=== PATIENT | female | born 1960 | race Caucasian/White ===

== ENCOUNTER 2017-10-31 17:40 | Emergency (ER) | payer OTHER ==
[2017-10-31] MEDS ORDERED: ACETAMINOPHEN-CODEINE 300/30MG TAB ONE (18:11)
== END 2017-10-31 17:50 | disposition home or self-care (01) ==
LOC: EDH 17:40
DX: S80.01XA Contusion of right knee, initial encounter (principal); Z88.1 Allergy status to other antibiotic agents; E11.9 Type 2 diabetes mellitus without complications; I10 Essential (primary) hypertension; J45.909 Unspecified asthma, uncomplicated; W18.39XA Other fall on same level, initial encounter; Y93.01 Activity, walking, marching and hiking; Y92.89 Other specified places as the place of occurrence of the external cause; Y99.8 Other external cause status
CPT/HCPCS: 73562; 73590

== ENCOUNTER → 2018-04-21 | Outpatient (CLI) | payer OTHER | END | disposition home or self-care (01) | LOC: SHCH 15:07 | PROVIDERS: ATTEND Internal Medicine Cardiovascular Disease | DX: I34.0 Nonrheumatic mitral (valve) insufficiency (principal); I10 Essential (primary) hypertension | CPT/HCPCS: 93306 ==

== ENCOUNTER 2019-04-18 08:27 | Day surgery (SDC) | payer OTHER ==
[2019-04-17 16:11] VITALS: BP 144/72
--- NOTE | 2019-04-17 18:00 | NUR ---
ASPIRIN INFORMED DR. ZAPATA THAT PER PT, SHE TOOK HER ASA 81 MG THIS AM AT 1000. NO FURTHER ORDERS FROM DR. ZAPATA, MAY PROCEED.
[~2019-04-18] VITALS: Ht 152.4 cm; Wt 133.4 kg
[2019-04-18] VITALS (15 sets, daily range): BP systolic 110–148; BP diastolic 54–75
[~2019-04-18 08:27] MED LIST: ASPI-1181 PO; ATOR-2 PO; BUPR300T54 PO; CALCIUM CITRATE PO; CEFAZOLIN 3GM /D5W 100ML 100 ML IV PRN; CHOL100034 PO; CLON0.5T4 PO; ESCI20TA36 PO; ESOM20CA31 PO; FLONASE NASAL; FOLIC ACID PO; LATA7.5D OP; LEVO75TA4 PO; LITH300T3 PO; LOSA100T58 PO; MULTIVITAMIN PO; MV-M1TAB57 PO; OMEGA 3 PO; QUET400T12 PO; QUINOL PO; SALBUTAMOL IH; SILDENAFIL PO; TOPI50TA PO; VITA-328 PO; VITAMIN B12 SL; [UNRECOGNIZED DRUG - OTHER] PO; [UNRECOGNIZED DRUG - OTHER] SQ
[2019-04-18] MEDS ORDERED: SODIUM CHLORIDE 0.9% 1000ML 1,000 ML IV ONE (08:39)
[2019-04-18] MEDS: CEFAZOLIN SODIUM 1 GM VIAL ONE ×2 (10:04→12:00)
[2019-04-18] MEDS ORDERED: MIDAZOLAM HCL 1 MG/ML 2ML VIAL ONE (11:06)
[2019-04-18] MEDS ORDERED: DEXAMETHASONE SOD PHOSPHATE 10MG/ML 1ML VIAL ONE (11:06)
[2019-04-18] MEDS ORDERED: ONDANSETRON HCL 4 MG/2 ML VIAL ONE ×2 (11:06→14:55)
[2019-04-18] MEDS ORDERED: PROPOFOL 10 MG/ML 20ML VIAL IV ONE (11:06)
[2019-04-18] MEDS ORDERED: FENTANYL CITRATE PF 50 MCG/1 ML 2ML VIAL ONE ×2 (11:07→12:06)
[2019-04-18] MEDS ORDERED: ROCURONIUM 10MG/1ML SYR 10 MG/ML ML ONE ×2 (11:10→12:22)
[2019-04-18] MEDS ORDERED: GLYCOPYRROLATE 1 MG/5 ML SYRINGE ONE (12:09)
[2019-04-18] MEDS ORDERED: EPHEDRINE SULFATE 50 MG/ML AMPULE ONE (12:12)
[2019-04-18] MEDS ORDERED: NEOSTIGMINE 5MG/5ML SYR IV ONE (13:26)
[2019-04-18] MEDS ORDERED: CEPH500B PO (13:35)
[2019-04-18] MEDS ORDERED: HYDR-4457 PO (13:35)
--- NOTE | 2019-04-18 15:00 | NUR ---
post received pt from [facility], s/p left shoulder arthroscopy. dressing to site dry and intact, arm sling in place. vs stable on arrival . call light within reach
--- NOTE | 2019-04-18 16:04 | NUR ---
dc pt dc home via [place], no distress noted. denied any pain or discomforts. arm sling in place to left shoulder. pt accompanied by spouse
== END 2019-04-18 16:04 | disposition home or self-care (01) ==
LOC: DAH 08:27
PROVIDERS: ATTEND Orthopaedic Surgery
DX: M75.42 Impingement syndrome of left shoulder (principal); M19.012 Primary osteoarthritis, left shoulder; M94.212 Chondromalacia, left shoulder; M75.22 Bicipital tendinitis, left shoulder; M75.52 Bursitis of left shoulder; M75.82 Other shoulder lesions, left shoulder; E11.22 Type 2 diabetes mellitus with diabetic chronic kidney disease; I12.9 Hypertensive chronic kidney disease with stage 1 through stage 4 chronic kidney disease, or unspecified chronic kidney disease; N18.9 Chronic kidney disease, unspecified; E66.01 Morbid (severe) obesity due to excess calories; J44.9 Chronic obstructive pulmonary disease, unspecified; E78.5 Hyperlipidemia, unspecified; F31.9 Bipolar disorder, unspecified; Z68.43 Body mass index [BMI] 50.0-59.9, adult; Z88.1 Allergy status to other antibiotic agents; Z86.73 Personal history of transient ischemic attack (TIA), and cerebral infarction without residual deficits; Z90.710 Acquired absence of both cervix and uterus; Z79.899 Other long term (current) drug therapy; Z79.4 Long term (current) use of insulin; Z79.82 Long term (current) use of aspirin; Z82.49 Family history of ischemic heart disease and other diseases of the circulatory system; Z82.5 Family history of asthma and other chronic lower respiratory diseases
CPT/HCPCS: 29822; 29824; 29826; 64415; 76942; 82948 ×2; A4215; A4221; A4222; A4223; A4565; A4615; A4649 ×3; A4663; A4930; A6204; J0690; J1100; J2250; J2405 ×2; J2704; J2710; J3010 ×2; J3490 ×2; J7030 ×2

== ENCOUNTER 2019-04-18 20:42 | Observation (INO) | payer OTHER ==
[~2019-04-18 20:42] MED LIST changes: -CEFAZOLIN 3GM /D5W 100ML 100 ML IV PRN; +CEPH500B PO; +HYDR-4457 PO
[2019-04-18 21:23] LABS: APPEARANCE,URINE Clear (CLEAR); BILIRUBIN,URINE Negative (NEGATIVE); COLOR,URINE Yellow (YELLOW); GLUCOSE, URINE (UA) Negative (NEGATIVE); KETONES,URINE Negative (NEGATIVE); LEUKOCYTE ESTERASE ,URINE Trace (NEGATIVE); NITRATE,URINE Negative (NEGATIVE); OCCULT BLOOD,URINE Negative (NEGATIVE); PROTEIN,URINE Negative (NEGATIVE); UROBILINOGEN,URINE 0.2 mg/dL (0.2-1.0)
[2019-04-18 21:29] LABS: ABG OXYGEN SATURATION 67.7 % (95.0-99.0); BASE EXCESS,VENOUS BLOOD GAS -6.4 (-2.0-3.0); HCO3,VENOUS BLOOD GAS 18.7 (21.0-28.0); PCO2,VENOUS BLOOD GAS 36 (32-45)
[2019-04-18 21:33] LABS: BACTERIA,URINE Rare /HPF (None Seen); RBC,URINE 0-1 /HPF (0-1); SQUAMOUS EPITHELIAL CELL,UR Rare /HPF (0-2); TRANSITIONAL EPI CELLS,URINE Rare /HPF (None Seen); WBC,URINE 0-1 /HPF (0-1)
[2019-04-18 21:35] LABS: BASOPHILS % (AUTO) 0.2 % (0.0-5.0); EOSINOPHILS % (AUTO) 0.1 % (0.0-8.0); HEMATOCRIT 35.2 % (36-48); LYMPHOCYTES % (AUTO) 9.8 % (21.0-51.0); MEAN CORPUSCULAR HEMOGLOBIN 28.4 pg (27.0-33.0); MEAN CORPUSCULAR HGB CONC 32.9 g/dL (32.0-36.0); MEAN CORPUSCULAR VOLUME 86.4 fL (79-99); MONOCYTES % (AUTO) 6.7 % (3.0-13.0); NEUTROPHILS % (AUTO) 83.2 % (40.0-77.0); PLATELET COUNT (AUTO) 300 K/uL (130-400); RED BLOOD CELL COUNT(AUTO) 4.07 MIL/uL (4.00-5.50); RED CELL DISTRIBUTION WIDTH 14.4 % (11.0-15.5); WHITE BLOOD COUNT (AUTO) 13.5 K/uL (4.8-10.8)
[2019-04-18 21:44] LABS: PARTIAL THROMBOPLASTIN TIME 24.3 SEC (26.3-35.5); PROTHROMBIN TIME 10.5 SEC (9.6-11.6)
[2019-04-18 21:51] LABS: CREATININE 1.7 mg/dL (0.5-1.5); POTASSIUM 4.7 mmol/L (3.5-5.1)
[2019-04-18 21:55] LABS: BILIRUBIN,TOTAL 0.3 mg/dL (0.2-1.0); TOTAL PROTEIN, SERUM 7.6 g/dL (6.0-8.3)
[2019-04-19] MEDS ORDERED: ONDANSETRON ODT 4 MG TAB ONE (07:22)
[2019-04-19] MEDS ORDERED: HYDROCODONE/ACETAMINOPHEN 5/325 MG TAB ONE (07:22)
[2019-04-19] MEDS ORDERED: ACETAMINOPHEN 325 MG TAB PO PRN (12:45)
[2019-04-19] MEDS ORDERED: MORPHINE SULFATE 2 MG/ML 1ML SYG IVP PRN (12:45)
[2019-04-19] MEDS ORDERED: GABAPENTIN 100 MG CAPSULE PO SCH (14:00)
[2019-04-19] MEDS ORDERED: INSULIN R PO SS1 SQ SCH (16:30)
[2019-04-20] MEDS ORDERED: ENOXAPARIN SODIUM 30 MG/0.3 ML SQ SCH (09:00)
[2019-04-20] MEDS ORDERED: ASPIRIN 81MG TAB.CHEW PO SCH (09:00)
== END 2019-04-19 13:04 | disposition left against medical advice (07) ==
LOC: EDH 20:42 → EDHIP 04-19 12:20
PROVIDERS: ADMIT Internal Medicine Infectious Disease; ATTEND Internal Medicine Infectious Disease
DX: R20.0 Anesthesia of skin (principal); R53.1 Weakness; J45.909 Unspecified asthma, uncomplicated; E11.9 Type 2 diabetes mellitus without complications; I10 Essential (primary) hypertension; F31.9 Bipolar disorder, unspecified; G47.30 Sleep apnea, unspecified; Z98.890 Other specified postprocedural states; Z88.1 Allergy status to other antibiotic agents
CPT/HCPCS: 36415 ×2; 36600; 71045; 72125; 72128; 72131; 80053; 81001; 81003; 82550; 82803; 83605 ×2; 84484; 85025; 85610; 85730; 93005; 99284; G0378

== ENCOUNTER → 2023-06-21 | Outpatient (CLI) | payer OTHER ==
[~2023-06-21] MED LIST changes: -ASPI-1181 PO; +ASPI-1443 PO; +BUPR-317 PO; -BUPR300T54 PO; -ESCI20TA36 PO; +ESCI20TA38 PO; -LOSA100T58 PO; +LOSA100T59 PO; -QUET400T12 PO; +QUET400T13 PO
== END | disposition home or self-care (01) ==
LOC: RAH 09:40
PROVIDERS: ATTEND Internal Medicine Cardiovascular Disease
DX: Z13.6 Encounter for screening for cardiovascular disorders (principal)
CPT/HCPCS: 75571

== ENCOUNTER → 2023-08-16 | Outpatient (CLI) | payer BC | END | disposition home or self-care (01) | LOC: SHCH 14:27 | PROVIDERS: ATTEND Internal Medicine Cardiovascular Disease | DX: I35.0 Nonrheumatic aortic (valve) stenosis (principal); I10 Essential (primary) hypertension | CPT/HCPCS: 93306 ==